=== PATIENT | male | born 1960 | race Caucasian/White ===

== ENCOUNTER 2019-06-16 10:25 | Inpatient (IN) | payer OTHER ==
[~2019-06-16] VITALS: Ht 182.9 cm; Wt 88.9 kg
--- NOTE | 2019-06-16 10:35 | NUR ---
PATIENT VIOLET RA 88 FROM HOME. REPORTED INCREASING ABD PAIN FOR 3-4 DAYS. PER RA REPORT, FSBS TAKEN WITH RESULT OF 56. REPORTED GIVEN PATIENT WITH D10 PRIOR TO ADMISSION. CONNECTED TO MONITOR.
--- NOTE | 2019-06-16 10:38 | NUR ---
FSBS 179. DR ALEX AWARE
[2019-06-16 10:45] LABS: BASOPHILS % (AUTO) 0.1 % (0.0-2.0); HEMATOCRIT 43 % (39-51); HEMOGLOBIN 14.5 g/dL (13.5-17.5); LYMPHOCYTES # (AUTO) 0.4 /CMM (0.8-4.8); LYMPHOCYTES % (AUTO) 2.5 % (20.0-44.0); MEAN CORPUSCULAR HGB CONC 34 g/dl (31.0-36.0); MEAN CORPUSCULAR VOLUME 95 fL (80-96); MONOCYTES # (AUTO) 1.2 /CMM (0.1-1.30); MONOCYTES % (AUTO) 7.7 % (2.0-12.0); NEUTROPHILS # (AUTO) 13.6 /CMM (1.8-8.9); NEUTROPHILS % (AUTO) 89.7 % (43.0-81.0); PLATELET COUNT (AUTO) 264 /CMM (150-450); RED BLOOD CELL COUNT(AUTO) 4.48 MIL/uL (4.5-6.0); WHITE BLOOD COUNT (AUTO) 15.2 K/uL (4.3-11.0)
--- NOTE | 2019-06-16 10:49 | NUR ---
IV LINE ESTABLISHED. BLOOD DRAWN AND SENT TO LAB
[2019-06-16 11:00] LABS: ALANINE AMINOTRANSFERASE 134 U/L (12-78); ALKALINE PHOSPHATASE 229 U/L (46-116); ASPARTATE AMINOTRANSFERASE 192 U/L (15-37); BILIRUBIN,DIRECT 4.3 mg/dL (0.0-0.2); BILIRUBIN,TOTAL 5.2 mg/dL (0.2-1.0); CARBON DIOXIDE 18 mmol/L (21-32); CHLORIDE 88 mmol/L (98-107); CREATININE 3.5 mg/dL (0.6-1.3); GLUCOSE 125 mg/dL (74-106); LIPASE 237 U/L (73-393); SODIUM SERUM 121 mmol/L (136-145); TOTAL PROTEIN, SERUM 5.9 g/dL (6.4-8.2)
[2019-06-16] MEDS ORDERED: IV NS 0.9% 1,000 ML BAG IV ONE (11:00)
[2019-06-16 11:02] LABS: CALCIUM, SERUM 13.6 mg/dL (8.5-10.1)
[2019-06-16 11:03] LABS: UREA NITROGEN, BLOOD 106 mg/dL (7-18)
[2019-06-16 11:24] LABS: SERUM AMMONIA 32 umol/L (11-32)
--- NOTE | 2019-06-16 11:54 | NUR ---
TALKED WITH [facility]. THEY WANT CLINICALS AND FACE SHEET FAXED.
[2019-06-16] MEDS ORDERED: IV NS 0.9% 1,000 ML IV ONE (12:00)
[2019-06-16] MEDS ORDERED: OXYC15TA2 PO (13:02)
--- NOTE | 2019-06-16 13:02 | NUR ---
CALLED [facility] FOR FOLLOW UP OF STATUS OF TRANSFER.
--- NOTE | 2019-06-16 13:54 | NUR ---
PAGED [facility] [employer].
[2019-06-16] MEDS ORDERED: MORPHINE SULFATE INJ 2 MG/ML DISP.SYRIN IV ONE (14:00)
[2019-06-16] MEDS ORDERED: MORPHINE SULFATE INJ 2 MG/ML DISP.SYRIN ONE (14:01)
--- NOTE | 2019-06-16 14:07 | NUR ---
CALLED NURSING SUP FOR TELE BED.
--- NOTE | 2019-06-16 14:41 | NUR ---
NURSING SUP CALLED GAVE TELE BED [phone]. MUKESH IS THE NURSE.
--- NOTE | 2019-06-16 15:16 | NUR ---
SPOKE WITH MUKESH AGUILERA AND GAVE REPORT
[2019-06-16 16:00] VITALS: BP 134/80
--- NOTE | 2019-06-16 16:00 | NUR ---
LOAN PROCESSING SUPERVISORSHALE MINER NOTE PT ARRIVED TO TELE UNIT IN STABLE CONDITION ACCOMPANIED BY 2 ER STAFF. PT IS A/O X4, AFEBRILE. RESPIRATIONS ARE EVEN AND UNLABORED, NOT IN ANY ACUTE DISTRESS NOTED. TELE LEADS PLACED AND IS SR. PUPILS ARE REACTIVE TO LIGHT, NOTED WITH JAUNDICE SCLERA. ABDOMEN IS SOFT AND NONDISTENDED, BOWEL SOUNDS ARE PRESENT IN ALL 4 QUADRANTS UPON AUSCULTATION. DENIES ANY BLADDER DISCOMFORT. SKIN IS INTACT, NO SKIN ISSUES NOTED. PT DOES C/O PAIN 10/10 TO ABDOMEN AND LOWER BACK. WILL MEDICATE ACCORDINGLY. IV ACCESS TO RFA G18 AND LAC G20 INTACT, NO INFILTRATION NOTED. DRESSING KEPT CLEAN AND DRY. DR. CARBALLO MADE AWARE OF ADMISSION W/ ORDERS NOTED AND CARRIED OUT. SAFETY MEASURES ARE IN PLACE. INSTRUCTED PT TO USE CALL LIGHT WHEN ASSISTANCE IS NEEDED, CALL LIGHT IS LEFT WITHIN REACH. WILL MONITOR THROUGHOUT SHIFT FOR CONTINUITY OF CARE.
--- NOTE | 2019-06-16 16:04 | NUR ---
PATIENT TRANSFERRED TO [facility] VIA ACLS PROTOCOL
[2019-06-16] MEDS ORDERED: ACETAMINOPHEN 325 MG TABLET PO PRN (17:30)
[2019-06-16] MEDS ORDERED: HYDROCODONE/APAP 5/325MG 1 EACH TABLET PO PRN (17:30)
[2019-06-16] MEDS ORDERED: Z GUARD REMEDY 2 OZ OINT TP PRN (17:30)
[2019-06-16] MEDS ORDERED: MAG HYDROX/AL HYDROX/SIMETH 30 ML UDC PO PRN (17:30)
[2019-06-16] MEDS ORDERED: MAGNESIUM HYDROXIDE 30 ML UDC PO PRN (17:30)
[2019-06-16] MEDS ORDERED: ZOLPIDEM TARTRATE 5 MG TABLET PO PRN (17:30)
[2019-06-16] MEDS ORDERED: ONDANSETRON HCL/PF 4 MG/2 ML VIAL IVP PRN (17:30)
[2019-06-16] MEDS: IV D5/0.45 NACL 1,000 ML IV PRN (18:18)
[2019-06-16] MEDS: MORPHINE SULFATE INJ 2 MG/ML DISP.SYRIN IV PRN ×2 (18:18→22:36)
--- NOTE | 2019-06-16 18:45 | NUR ---
LIGHT OUT EXAMINER CLOSING NOTES PT REMAINS A/O X4, AFEBRILE. APPEAR TO BE VERY TIRED. RESPIRATIONS ARE EVEN AND UNLABORED, NOT IN ANY ACUTE DISTRESS NOTED. MEDICATED PT WITH MORPHINE FOR PAIN, WILL NOTE EFFECTIVENESS. IV ACCESS TO RFA AND LAC, IV FLUIDS RUNNING AT 100ML/HR, TOLERATING WELL. SAFETY MEASURES ARE IN PLACE. GF AT BEDSIDE. WILL ENDORSE TO NEXT SHIFT FOR CONTINUITY OF CARE.
--- NOTE | 2019-06-16 19:15 | NUR ---
RN INITIAL NOTES: RECEIVED REPORT FROM MUKESH AGUILERA. PT IN BED, SLEEPING, APPEARS CALM AND COMFORTABLE, RESPIRATIONS EVEN AND UNLABORED. ON TELE MONITORING, SINUS RHYTHM HR 74. JUST RECEIVED PRN PAIN MEDS NOT TOO LONG AGO. MET WITH PT'S GF AT BED SIDE, PER GF THEY ARE STILL WAITING TO BE TRANSF[facility], PT'S ONCOLOGIST IS THERE AND PT IS WELL KNOWN TO AGUAS BUENAS. PT'S LAST CHEMO THERAPY WAS 5WEEKS AGO. NOTED PORT-A-CATH ON RIGHT UPPER CW, NOT ACCESS AT THIS TIME. NO S/S OF INFECTION, DRAINAGE OR BLEEDING ON PORT-A-CATH SITE. PT HAS 2 IV ACCESS, BOTH PATENT AND FLUSHING WELL, LEFT AC IV ON HL, AND RIGHT FA IV ACCESS INFUSING WITH D51/2 NS AT 100ML/HR. PT ON NPO, FOR XR VIDEO SWALLOW WITH SPEECH. PER REPORT FROM AUBRIE RN, THIS PROCEDURE WILL TAKE PLACE ON WEDNESDAY SPEECH THERAPIST IS AVAILABLE BY WEDNESDAY. WILL BE KEPT NPO DUE TO DYSPHAGIA AND EPISODE OF VOMITING. URINAL WITHIN REACH. SAFETY PRECAUTIONS FOR FALL INITIATED, CALL LIGHT IN REACH, WILL CONTINUE MONITORING PT.
--- NOTE | 2019-06-16 19:30 | NUR ---
RN NOTES: DR ROA AT BED SIDE, SPEAKING WITH PT'S FAMILY/GF, REGARDING PLAN OF CARE TONIGHT. PER DR ROA, WILL DO CT CHEST WO CONTRAST TOMORROW AM, AND WILL START ON IV ATB.
[2019-06-16 20:00] VITALS: BP 131/79
--- NOTE | 2019-06-16 20:30 | NUR ---
RN NOTES: SUCTION SET UP SECURED
[2019-06-16] MEDS ORDERED: PHYTONADIONE INJ 10 MG/1 ML AMPUL SQ ONE (21:00)
[2019-06-16] MEDS ORDERED: ENOXAPARIN SODIUM 30 MG/0.3 ML DISP.SYRIN SQ SCH (21:00)
[2019-06-16] MEDS ORDERED: CEFTRIAXONE 1 G in IV D5W 50 ML IV SCH (21:00)
--- NOTE | 2019-06-16 21:00 | NUR ---
RN NOTES: STILL PENDING FIBRINOGEN RESULT
--- NOTE | 2019-06-16 21:30 | NUR ---
RN NOTES: FIBRINOGEN RESULT STILL PENDING
--- NOTE | 2019-06-16 22:00 | NUR ---
rn notes: clarified with pharm oil exploration engineer regarding order for lovenox and vit k.
[2019-06-16 22:35] VITALS: BP 125/75
--- NOTE | 2019-06-16 22:36 | NUR ---
prn morphine: pt c/o 04/29 generalized pain requesting pain medication. prn morphine 2mg ivp administered to pt at this time, vs taken and recorded prior to administering medication. will continue to monitor and reassess pt.
--- NOTE | 2019-06-16 22:50 | NUR ---
rn notes: clarified with dr la regarding vit k order, awaiting call back
--- NOTE | 2019-06-16 23:10 | NUR ---
rn notes: supervisor agricultural education md currently in the unit, relayed result of procalcitonin 8.79, made aware pt on rocephin iv q24hrs, was given at 2228pm, no new orders per md. also asked regarding order for lovenox by am hospitalist and hem/onc order for vit k, relayed result of coags, pt inr and ptt, per md, to give vit k x1 dose as ordered, and dc lovenox order. order read back, verified, and carried out.
--- NOTE | 2019-06-16 23:18 | NUR ---
rn notes: vit k order x 1 dose. witnessed by mathieu rosas. vit k administered subcutaneously on abdomen/rlq area.
--- NOTE | 2019-06-17 00:06 | NUR ---
RN NOTES: SEEN PT SLEEPING AT THIS TIME, NO FACIAL GRIMACE NOTED, APPEARS CALM AND COMFORTABLE. WILL CONTINUE MONITORING PT.
--- NOTE | 2019-06-17 01:00 | NUR ---
rn notes: pt refuses to use urinal, insisted to go to the bathroom. pt needs assistance ambulating to bathroom, noted to be unsteady. voided freely in the toilet bowl, unable o use urinal, unable to collect urine for ua/ua culture. assisted back to bed, connected back to ivf as ordered.
[2019-06-17] MEDS: IV D5/0.45 NACL 1,000 ML IV PRN (03:21)
--- NOTE | 2019-06-17 03:21 | NUR ---
rn notes: pt sleeping at this time, respirations even and unlabored, appears calm and comfortable, will continue monitoring pt.
--- NOTE | 2019-06-17 04:10 | NUR ---
rn notes: collected urine for ua and c&s, contacted lab for fiber picker of specimen.
[2019-06-17 04:15] VITALS: BP 126/82
[2019-06-17] MEDS: MORPHINE SULFATE INJ 2 MG/ML DISP.SYRIN IV PRN (04:19)
--- NOTE | 2019-06-17 04:19 | NUR ---
prn morphine: pt c/o 04/29 abdominal pain requesting for pain medication. prn morphine 2mg ivp administered to pt at this time, will continue to monitor and reassess pt.
--- NOTE | 2019-06-17 06:46 | NUR ---
rn closing notes: pt in bed, remains a/o x3 on ra respirations even and unlabored. both iv access remains patent and flushing well, infusing with ivf as ordered. no episode of n/v noted throughout the shift. last pain meds administered 0420am. pt remains npo for xr video swallow with speech on tuesday 06/19, ct chest and ct head wo contrast today. [facility] paper works initially filled out with available information, for next shift rn to complete remaining necessary info, such as admitting/accepting md, latest vs, final diagnosis, name and address of hospital, room number, receiving rn name. exit care completed. vs remains stable, needs attended. safety precautions for fall remains engaged, call light in reach, will endorse to day rn for continuity of care.
--- NOTE | 2019-06-17 07:30 | NUR ---
RN OPENING NOTES RECEIVED PT LAYING IN BED, RESTING COMFORTABLY. PT IS EASILY AROUSABLE AND RESPONSIVE. RESPIRATIONS ARE EVEN AND UNLABORED, NOT IN ANY ACUTE DISTRESS NOTED. DENIES ANY PAIN AT THIS TIME, SOB, N/V. IV SITE TO RFA G18 AND LAC G20 INTACT, NO INFILTRATION NOTED. DRESSING KEPT CLEAN AND DRY. SAFETY MEASURES ARE IN PLACE. INSTRUCTED PT TO USE CALL LIGHT WHEN ASSISTANCE IS NEEDED, CALL LIGHT IS LEFT WITHIN REACH. WILL MONITOR THROUGHOUT SHIFT FOR CONTINUITY OF CARE.
[2019-06-17 07:41] LABS: BASOPHILS % (AUTO) 0.2 % (0.0-2.0); EOSINOPHILS % (AUTO) 0.2 % (0.0-6.0); HEMATOCRIT 43 % (39-51); HEMOGLOBIN 14.4 g/dL (13.5-17.5); LYMPHOCYTES # (AUTO) 0.2 /CMM (0.8-4.8); LYMPHOCYTES % (AUTO) 1.5 % (20.0-44.0); MEAN CORPUSCULAR HGB CONC 34 g/dl (31.0-36.0); MEAN CORPUSCULAR VOLUME 96 fL (80-96); MONOCYTES # (AUTO) 1.1 /CMM (0.1-1.30); MONOCYTES % (AUTO) 7.6 % (2.0-12.0); NEUTROPHILS # (AUTO) 13.2 /CMM (1.8-8.9); NEUTROPHILS % (AUTO) 90.5 % (43.0-81.0); PLATELET COUNT (AUTO) 203 /CMM (150-450); RED BLOOD CELL COUNT(AUTO) 4.44 MIL/uL (4.5-6.0); WHITE BLOOD COUNT (AUTO) 14.6 K/uL (4.3-11.0)
[2019-06-17 08:00] VITALS: BP 113/73
[2019-06-17 08:09] LABS: CREATININE 2.8 mg/dL (0.6-1.3); MAGNESIUM 2.7 mg/dL (1.8-2.4); PHOSPHORUS 5.2 mg/dL (2.5-4.9); POTASSIUM 4.6 mmol/L (3.5-5.1)
[2019-06-17 08:14] LABS: CALCIUM, SERUM 13.4 mg/dL (8.5-10.1)
[2019-06-17 08:51] LABS: APPEARANCE,URINE Cloudy (CLEAR); BILIRUBIN,URINE Negative (NEGATIVE); BLOOD, URINE Trace-intact Ery/uL (NEGATIVE); COLOR,URINE Yellow (YELLOW); KETONES,URINE Negative (NEGATIVE); LEUKOCYTE ESTERASE ,URINE Negative (NEGATIVE); NITRITE, URINE Negative (NEGATIVE); PROTEIN,URINE Negative (NEGATIVE); UGLUCOSE Negative (NEGATIVE); UROBILINOGEN,URINE 0.2 EU/dL (0.2)
[2019-06-17] MEDS ORDERED: PANTOPRAZOLE 40 MG VIAL IV SCH (09:00)
[2019-06-17] MEDS ORDERED: Sodium Chloride 154 MEQ in IV 10% DEXTROSE 1,000 ML IV PRN (09:00)
[2019-06-17] MEDS ORDERED: AZITHROMYCIN 500 MG in IV D5W 250 ML IV SCH (09:00)
[2019-06-17 09:14] LABS: BACTERIA,URINE Few /HPF (None Seen); RBC,URINE 0-2 /HPF (0-2); SQUAMOUS EPITHELIAL CELL,UR Rare /HPF (None Seen); WBC,URINE NONE SEEN /HPF (0-3)
[2019-06-17 09:15] LABS: URINE AMORPHOUS URATE Many /HPF (None Seen)
[2019-06-17] MEDS: BLOOD SUGAR DIAGNOSTIC 1 EACH STRIP IN SCH ×2 (12:28→18:00)
--- NOTE | 2019-06-17 12:30 | NUR ---
MS RN NOTES-- PT WAS SEEN AND EXAMINED BY DR. ESQUEDA.
--- NOTE | 2019-06-17 13:44 | NUR ---
MS RN NOTES-- PT REFUSES JOHNSON INSERTION AT THIS TIME. EXPLAINED THE RISKS AND BENEFITS X3, PT STILL NOTED WITH REFUSAL. WILL HONOR PT'S RIGHT TO REFUSE. WILL CONTINUE TO MONITOR.
[2019-06-17 16:00] VITALS: BP 100/59
--- NOTE | 2019-06-17 18:05 | NUR ---
MS R NOTES-- PT REFUSED ACCUCHECK. SHOWS NO S/SX OF HYPO/HYPERGLYCEMIA NOTED. WILL CONTINUE TO MONITOR CLOSELY.
--- NOTE | 2019-06-17 19:00 | NUR ---
MS TIMEKEEPER SUPERVISOR/AMA NOTE PT AND DECIDED TO GO AMA. EXPLAINED THE RISKS AND CONSEQUENCES OF GOING AMA, BOTH PT AND AGREED WITH VERBALIZED AND WRITTEN UNDERSTANDING. ALSO EXPLAINED DISCHARGE PAPERWORK W/ VERBAL AND WRITTEN UNDERSTANDING WELL. PT IS A/O X3, AFEBRILE. RESPIRATIONS ARE EVEN AND UNLABORED, NOT IN ANY ACUTE DISTRESS NOTED. PT DENIES ANY PAIN AT THIS TIME, NO C/O SOB, N/V. ABDOMEN IS SOFT AND NONDISTENDED, BOWEL SOUNDS ARE PRESENT IN ALL 4 QUADRANTS UPON AUSCULTATION. DENIES ANY BLADDER DISCOMFORT. NO SKIN ISSUES NOTED. SKIN IS INTACT, KEPT CLEAN AND DRY. ALL BELONGINGS SENT WITH PT. ACCOMPANIED PT TO PERSONAL VEHICLE WITH 2 STAFF ASSIST VIA WHEELCHAIR. PT LEFT IN STABLE CONDITION. Addendum: 06/17/19 at 1929 by ANNE-MARIE HOLLIS RN MS RN NOTES-- DR. CARBALLO MADE AWARE OF AMA.
--- NOTE | 2019-06-17 19:20 | NUR ---
MS RN RECEIVE PT IN BED AWAKE WATCHING TV A/O X 3 STABLE, RESPIRATION EVEN AND UNLABORED, NO S/S OF DISTRESS. SAFETY MEASURES IN PLACE. WILL CONT TO MTR Addendum: 06/17/19 at 1929 by CODY SINGH RN MISTAKEN ENTRY DISREGARD THIS DOCUMENTATION WRONG PATIENT.
[2019-06-18 13:19] LABS: CREATININE, URINE 60.7 MG/DL (30.0-125.0)
== END 2019-06-17 19:00 | disposition left against medical advice (07) | DRG 682 ==
LOC: ER 10:29 → MED 15:35
PROVIDERS: ADMIT Student in an Organized Health Care Education/Training Program; ATTEND Student in an Organized Health Care Education/Training Program
DX: N17.0 Acute kidney failure with tubular necrosis (principal); G93.41 Metabolic encephalopathy; E43 Unspecified severe protein-calorie malnutrition; J15.9 Unspecified bacterial pneumonia; C78.7 Secondary malignant neoplasm of liver and intrahepatic bile duct; C15.9 Malignant neoplasm of esophagus, unspecified; E87.1 Hypo-osmolality and hyponatremia; D68.9 Coagulation defect, unspecified; Q85.9 Phakomatosis, unspecified; Z86.73 Personal history of transient ischemic attack (TIA), and cerebral infarction without residual deficits; Z92.21 Personal history of antineoplastic chemotherapy; R13.10 Dysphagia, unspecified; E86.0 Dehydration; D72.829 Elevated white blood cell count, unspecified; E83.52 Hypercalcemia; E88.09 Other disorders of plasma-protein metabolism, not elsewhere classified; Z68.26 Body mass index [BMI] 26.0-26.9, adult; R74.0 Nonspecific elevation of levels of transaminase and lactic acid dehydrogenase [LDH]; R91.8 Other nonspecific abnormal finding of lung field; J84.10 Pulmonary fibrosis, unspecified; E27.8 Other specified disorders of adrenal gland; E16.2 Hypoglycemia, unspecified
CPT/HCPCS: 36415; 70450-TC; 71045-TC; 71250-TC; 80048-TC; 80076-TC; 81000-TC; 82140-TC; 82570-TC; 82962-TC; 83690-TC; 83735-TC; 83935-TC; 84100-TC; 84300-TC; 84484-TC; 85025-TC; 85385-TC; 85730-TC; 87040-TC; 87081-TC; 87086-TC; C9113; G0378; J0456; J0696; J2270; J3430; J3490; J7030; J7060

== ENCOUNTER 2019-06-20 12:11 | Inpatient (IN) | payer OTHER ==
[~2019-06-20] VITALS: Ht 182.9 cm; Wt 86.2 kg
[~2019-06-20 12:11] MED LIST: OXYC15TA2 PO
--- NOTE | 2019-06-20 12:15 | NUR ---
"[id number], FROM HOME, AMS BS 55 D10 GIVEN BY EMS ON SCENE, Hx RENAL CA" pt aaox0, pt verbally responsive, pt on monitor, vss, nad noted, pending md mendez
--- NOTE | 2019-06-20 12:18 | NUR ---
CALLED JAMMIE TO HAVE HER EVALUATE PT FOR HOSPICE.
[2019-06-20] MEDS ORDERED: IV NS 0.9% 1,000 ML BAG IV ONE (12:30)
[2019-06-20 12:49] LABS: BASOPHILS # (AUTO) 0.1 /CMM (0.0-0.2); BASOPHILS % (AUTO) 0.7 % (0.0-2.0); HEMATOCRIT 43 % (39-51); HEMOGLOBIN 14.5 g/dL (13.5-17.5); LYMPHOCYTES # (AUTO) 0.1 /CMM (0.8-4.8); LYMPHOCYTES % (AUTO) 0.9 % (20.0-44.0); MEAN CORPUSCULAR HGB CONC 34 g/dl (31.0-36.0); MEAN CORPUSCULAR VOLUME 96 fL (80-96); MONOCYTES # (AUTO) 1.6 /CMM (0.1-1.30); NEUTROPHILS # (AUTO) 14.3 /CMM (1.8-8.9); NEUTROPHILS % (AUTO) 88.4 % (43.0-81.0); PLATELET COUNT (AUTO) 165 /CMM (150-450); RED BLOOD CELL COUNT(AUTO) 4.52 MIL/uL (4.5-6.0); WHITE BLOOD COUNT (AUTO) 16.1 K/uL (4.3-11.0)
[2019-06-20 13:09] LABS: ALBUMIN 1.5 g/dL (3.4-5.0); BILIRUBIN,DIRECT 10.5 mg/dL (0.0-0.2); BILIRUBIN,TOTAL 11.8 mg/dL (0.2-1.0); CREATININE 3.4 mg/dL (0.6-1.3); POTASSIUM 5.6 mmol/L (3.5-5.1); TOTAL PROTEIN, SERUM 5.4 g/dL (6.4-8.2)
[2019-06-20 13:12] LABS: APPEARANCE,URINE Clear (CLEAR); BILIRUBIN,URINE MODERATE (NEGATIVE); BLOOD, URINE Trace-intact Ery/uL (NEGATIVE); COLOR,URINE Yellow (YELLOW); KETONES,URINE Negative (NEGATIVE); LEUKOCYTE ESTERASE ,URINE Negative (NEGATIVE); NITRITE, URINE Negative (NEGATIVE); PROTEIN,URINE Negative (NEGATIVE); UGLUCOSE Negative (NEGATIVE); UROBILINOGEN,URINE 0.2 EU/dL (0.2)
--- NOTE | 2019-06-20 13:13 | NUR ---
CALLED [facility]. CYLINDER TESTER WAS PAGED.
--- NOTE | 2019-06-20 13:21 | NUR ---
CALLED HOUSE SUP FOR MS BED
[2019-06-20 13:34] LABS: BACTERIA,URINE Few /HPF (None Seen); SQUAMOUS EPITHELIAL CELL,UR Rare /HPF (None Seen); WBC,URINE 0-2 /HPF (0-3)
[2019-06-20 13:38] LABS: CALCIUM, SERUM 13.9 mg/dL (8.5-10.1)
--- NOTE | 2019-06-20 13:58 | NUR ---
[id number] ALE JUAREZ RN
--- NOTE | 2019-06-20 14:24 | NUR ---
MS WAFER PRODUCTION LEAD WORKER NOTES Received Patient resting in bed. A/O x 1. VS stable with no acute distress. Breathing even and unlabored on room air with no respiratory distress and SPO2 94%. Denies pain. 18g PIV on RAC clean, dry, intact and flushing well. Safety precautions in place. Bed locked and set to lowest position with side rails x 2 up. All needs rendered at this time. Call light within reach. Girlfriend at bedside. Will continue to monitor.
--- NOTE | 2019-06-20 14:46 | NUR ---
REPORT GIVEN TO DI AGUILERA FOR LIVIA; PT WILL BE TRANSPORTED TO 3RD FLOOR MS-- ADV DIRECTIVE IS WITH , NO HARD COPY AT THIS TIME.
[2019-06-20 16:00] VITALS: BP 102/68
[2019-06-20] MEDS ORDERED: ACETAMINOPHEN 650 MG/SUPP.RECT RC PRN (17:30)
[2019-06-20] MEDS ORDERED: IV D5/ 0.9% NACL 1,000 ML IV PRN (17:30)
[2019-06-20] MEDS ORDERED: Z GUARD REMEDY 2 OZ OINT TP PRN (17:30)
[2019-06-20] MEDS ORDERED: DEXTROSE 50%-WATER 50 ML DISP.SYRIN IV PRN (17:30)
[2019-06-20] MEDS ORDERED: ONDANSETRON HCL/PF 4 MG/2 ML VIAL IVP PRN (17:30)
[2019-06-20] MEDS: BLOOD SUGAR DIAGNOSTIC 1 EACH STRIP IN SCH ×2 (17:30→22:47)
--- NOTE | 2019-06-20 18:59 | NUR ---
MS RN CLOSING NOTES Patient resting in bed. A/O x 1. VS stable with no acute distress. Breathing even and unlabored on room air with no respiratory distress. Denies pain. 18g PIV on RAC clean, dry, intact and flushing well with D5NS running at 100ml/hr. Skin assessment pictures taken and placed in chart. Safety precautions in place. Bed locked and set to lowest position with side rails x 2 up. All needs rendered at this time. Call light within reach. Girlfriend at bedside. Will endorse plan of care to oncoming shift.
--- NOTE | 2019-06-20 19:30 | NUR ---
RN OPEN NOTES RECEIVED PATIENT RESTING IN BED WITH FAMILY AT BEDSIDE. A/OX1. NO SIGNS OF DISTRESS OR DISCOMFORT. BREATHING EVEN AND UNLABORED. IV ACCESS IN RAC WITH D5NS INFUSING, PATENT AND INTACT, NO SIGNS OF REDNESS OR INFILTRATION. BED IN LOW LOCKED POSITION WITH SIDE RAILS X3. BED ALARM ON. CALL LIGHT WITHIN REACH. WILL CONTINUE TO MONITOR.
[2019-06-20 20:01] VITALS: BP_SYST 113; BP_SYST 126; BP_DIAS 70; BP_DIAS 85
[2019-06-21] MEDS: BLOOD SUGAR DIAGNOSTIC 1 EACH STRIP IN SCH ×4 (07:02→22:13)
--- NOTE | 2019-06-21 07:16 | NUR ---
RN CLOSING NOTES PATIENT RESTING COMFORTABLY IN BED. A/OX1. NO SIGNS OF DISTRESS OR DISCOMFORT. BREATHING EVEN AND UNLABORED. IV ACCESS IN RAC WITH D5NS INFUSING, PATENT AND INTACT, NO SIGNS OF REDNESS OR INFILTRATION. ALL NEEDS MET. NO SIGNIFICANT CHANGES THROUGH THE NIGHT. BED IN LOW LOCKED POSITION WITH SIDE RAILS X3. BED ALARM ON. CALL LIGHT WITHIN REACH. ENDORSED TO AM SHIFT FOR LIVIA.
--- NOTE | 2019-06-21 07:45 | NUR ---
RN MS OPENING NOTES Received patient on room air, no sob noted, patient shows no s/s of pain at this time. Patient remains on NPO and is a/o x1 at this time. RAC #18 with D5NS@100 mL per hour. Bed at the lowest setting, call light within reach, side rails up x2.
[2019-06-21 08:00] VITALS: BP 124/78
[2019-06-21 16:00] VITALS: BP 118/65
[2019-06-21] MEDS: MORPHINE SULFATE INJ 2 MG/ML DISP.SYRIN IV PRN ×2 (16:43→22:14)
[2019-06-21] MEDS: IV D5/ 0.9% NACL 1,000 ML IV PRN (18:23)
--- NOTE | 2019-06-21 18:46 | NUR ---
RN MS CLOSING NOTES Patient remains on room air, no sob noted, patient a/o x1 and shows no s/s of pain at this time. Bed ridden and NPO. Glucose levels WNL the whole shift. Patient with SILAS midline 100 mL D5 NS. Bed at the lowest setting, call light within reach, side rails up x2. Will give report to NOC RN for LIVIA bedside.
[2019-06-21 19:01] LABS: BASOPHILS # (AUTO) 0.1 /CMM (0.0-0.2); BASOPHILS % (AUTO) 0.3 % (0.0-2.0); HEMATOCRIT 41 % (39-51); LYMPHOCYTES # (AUTO) 0.2 /CMM (0.8-4.8); LYMPHOCYTES % (AUTO) 1.3 % (20.0-44.0); MEAN CORPUSCULAR HGB CONC 34 g/dl (31.0-36.0); MEAN CORPUSCULAR VOLUME 95 fL (80-96); MONOCYTES # (AUTO) 1.3 /CMM (0.1-1.30); MONOCYTES % (AUTO) 8.1 % (2.0-12.0); NEUTROPHILS # (AUTO) 14.4 /CMM (1.8-8.9); NEUTROPHILS % (AUTO) 90.3 % (43.0-81.0); PLATELET COUNT (AUTO) 161 /CMM (150-450); RED BLOOD CELL COUNT(AUTO) 4.32 MIL/uL (4.5-6.0)
--- NOTE | 2019-06-21 19:05 | NUR ---
RN MS OPENING NOTES RECEIVED PATIENT IN BED AWAKE ALERT AND ORIENTED X1 , RESPIRATIONS EVEN AND UNLABORED WITH EQUAL RISE AND FALL OF CHEST, APPEARS TO BE COMFORTABLE AT THIS TIME, NPO STATUS, IV SITE TO RIGHT FA INTACT AND PATENT, AND RIGHT UPPER ARM MIDLINE IVF RUNNING ORDERED, SITTER AT BEDSIDE FOR SAFETY PRECAUTIONS, PERINEAL CARE PROVIDED REMAINS CLEAN AT THIS TIME, ALL NEEDS ATTENDED AT THIS TIME WILL CONTINUE TO MONITOR AND ADDRESS NEEDS.
[2019-06-21 19:30] LABS: BAND % (MANUAL) 10 % (0.0-5.0); BILIRUBIN,TOTAL 11.2 mg/dL (0.2-1.0); LYMPHOCYTES % (MANUAL) 3 % (16-48); MAGNESIUM 2.6 mg/dL (1.8-2.4); MONOCYTES % (MANUAL) 12 % (0-11.0); NEUTROPHILS % (MANUAL) 75 (42-76); PHOSPHORUS 5.7 mg/dL (2.5-4.9); TOTAL PROTEIN, SERUM 4.9 g/dL (6.4-8.2)
[2019-06-21 19:45] LABS: ALBUMIN 1.3 g/dL (3.4-5.0); CALCIUM, SERUM 13.6 mg/dL (8.5-10.1)
[2019-06-21 20:00] VITALS: BP 124/74
--- NOTE | 2019-06-21 21:00 | NUR ---
RN MS NOTES MADE HOSPITALIST MORIAH AWARE OF CRITICAL LABS RESULTED AND PREVIOUS TREND NO NEW ORDERS AT THIS TIME.
[2019-06-21] MEDS: INSULIN REGULAR, HUMAN 100 UNIT/ML 3 ML VIAL SQ PRN (22:13)
--- NOTE | 2019-06-21 22:14 | NUR ---
RN MS NOTES NOTED PATIENT UPON ASSESSMENT WITH MOANING AND FACIAL GRIMACING, VS WNL PRN MORPHINE GIVEN ORDERED FOR PAIN WILL CONTINUE TO MONITOR FOR EFFECTIVENESS.
[2019-06-22] MEDS: IV D5/ 0.9% NACL 1,000 ML IV PRN ×3 (04:26→23:38)
[2019-06-22] MEDS: INSULIN REGULAR, HUMAN 100 UNIT/ML 3 ML VIAL SQ PRN (06:20)
[2019-06-22] MEDS: BLOOD SUGAR DIAGNOSTIC 1 EACH STRIP IN SCH ×4 (06:20→22:59)
--- NOTE | 2019-06-22 06:44 | NUR ---
RN MS CLOSING NOTES PATIENT IN BED AWAKE ALERT AND ORIENTED X1 , RESPIRATIONS EVEN AND UNLABORED WITH EQUAL RISE AND FALL OF CHEST, APPEARS TO BE COMFORTABLE AT THIS TIME, NPO STATUS, IV SITE TO RIGHT FA INTACT AND PATENT, AND RIGHT UPPER ARM MIDLINE IVF RUNNING ORDERED, SITTER AT BEDSIDE FOR SAFETY PRECAUTIONS, PERINEAL CARE PROVIDED THROUGHOUT SHIFT , SKIN REMAINS INTACT. REMAINS CLEAN AT THIS TIME, ALL NEEDS ATTENDED AT THIS TIME WILL CONTINUE TO MONITOR AND ENDORSE TO NEXT SHIFT.
--- NOTE | 2019-06-22 07:45 | NUR ---
M/S RN NOTES PATIENT AWAKE IN BED, ALERT AND ORIENTED X1 , NO RESPIRATORY DISTRESS, NO S/S OF PAIN AT THIS TIME. PATIENT ON NPO STATUS, IV OF D5 NS INFUSING AT 100ML/HR ON THE SILAS MIDLINE, INTACT AND PATENT. PATIENT HAS A SITTER AT BEDSIDE. SKIN WARM TO TOUCH. PATIENT'S NEEDS ATTENDED. BED ON LOWEST LOCKED POSITION, CALL LIGHT WITHIN REACH. WILL CONTINUE TO MONITOR.
[2019-06-22] MEDS: MORPHINE SULFATE INJ 2 MG/ML DISP.SYRIN IV PRN ×3 (08:44→18:13)
--- NOTE | 2019-06-22 18:50 | NUR ---
M/S RN NOTES PATIENT RESTING, LYING IN BED. NO RESPIRATORY DISTRESS, NO S/S OF PAIN AT THIS TIME. PATIENT'S NEEDS ATTENDED. GIRLFRIEND AT BEDSIDE. SKIN WARM TO TOUCH. IV OF D5 NS INFUSING AT 100ML/HR ON SILAS MIDLINE, INTACT AND PATENT. BED ON LOWEST LOCKED POSITION, CALL LIGHT WITHIN REACH. WILL ENDORSE TO ONCOMING NURSE.
--- NOTE | 2019-06-22 19:15 | NUR ---
MS RN NOTES RECEIVED PT IN BED RESTING. PT A/O X1. RESPIRATIONS EVEN AND UNLABORED WITH NO S/S OF ACUTE DISTRESS OR SOB NOTED. NO S/S OF PAIN AT THIS TIME. PATIENT ON CLEAR LIQUIDS. PT WITH SILAS MIDLINE INFUSING D5 NS AT 100ML/HR. PT WITH SITTER AT BEDSIDE. SAFETY MEASURES IN PLACE WITH BED IN LOWEST LOCKED POSITION WITH SIDE RAILS UP X2. CALL LIGHT WITHIN REACH. WILL CONTINUE TO MONITOR.
[2019-06-22 20:00] VITALS: BP 107/70
--- NOTE | 2019-06-23 06:00 | NUR ---
MS RN NOTES PAIN MEDS OFFERED THROUGHOUT SHIFT. PT STATED THAT HE HAD NO PAIN AT THE TIME EACH TIME IT WAS OFFERED.
[2019-06-23] MEDS: BLOOD SUGAR DIAGNOSTIC 1 EACH STRIP IN SCH (06:31)
--- NOTE | 2019-06-23 06:40 | NUR ---
MS RN NOTES PT IN BED RESTING BUT EASILY AWOKEN. PT A/O X1. RESPIRATIONS EVEN AND UNLABORED WITH NO S/S OF ACUTE DISTRESS OR SOB NOTED THROUGHOUT SHIFT. NO S/S OF PAIN AT THIS TIME. PATIENT ON CLEAR LIQUIDS. PT WITH SILAS MIDLINE INFUSING D5 NS AT 100ML/HR. PT WITH SITTER AT BEDSIDE. SAFETY MEASURES IN PLACE WITH BED IN LOWEST LOCKED POSITION WITH SIDE RAILS UP X2. PT KEPT CLEAN, DRY, AND COMFORTABLE. CALL LIGHT WITHIN REACH. WILL ENDORSE TO ONCOMING NURSE FOR LIVIA.
[2019-06-23 08:00] VITALS: BP 104/68
--- NOTE | 2019-06-23 08:00 | NUR ---
m/s building tech: initial assessment received pt in bed awake, alert to self only. pt keeps tossing and turning, kept comfortable and repositioned. reality orientation provided prn. sitter at bedside. will continue to monitor.
--- NOTE | 2019-06-23 08:30 | NUR ---
m/s marine electronics technician: notes mattie (girlfriend, dpoa) here visiting and plan to meet with case management to discuss home health vs. hospice care. will continue to monitor.
--- NOTE | 2019-06-23 09:00 | NUR ---
m/s sporting goods salesperson: notes mattie (dpoa) already met hospice nurse yesterday and to meet with her again in the afternoon as stated, but wants to meet with case management first after their meeting today.
[2019-06-23] MEDS: IV D5/ 0.9% NACL 1,000 ML IV PRN (09:28)
[2019-06-23] MEDS: MORPHINE SULFATE INJ 2 MG/ML DISP.SYRIN IV PRN ×3 (09:33→21:48)
--- NOTE | 2019-06-23 09:33 | NUR ---
m/s claim inspector: notes pt restless in bed, keep tossing and turning. noted with facial grimacing. morphine 2mg ivp by rn. girlfriend remains at bedside. will continue to monitor.
--- NOTE | 2019-06-23 10:03 | NUR ---
m/s breaster: lester phelps (dpoa) remains at bedside. pt resting comfortable in bed. will continue to monitor.
--- NOTE | 2019-06-23 10:30 | NUR ---
m/s tank house operator: notes mattie (dpoa, girlfriend) went down to case management office at this time. sitter remains at bedside.
--- NOTE | 2019-06-23 11:10 | NUR ---
m/s button maker and installer: md visit seen and examined by beti mccullough (acnp) with order for comfort measures only. beti spoke to mattie (responsible alliance party) at bedside.
--- NOTE | 2019-06-23 11:11 | NUR ---
WOUND CARE CONSULT: NO SKIN ASSESSMENT AT THIS TIME PER PATHOLOGY ASSISTANT AND N.P.
--- NOTE | 2019-06-23 11:38 | NUR ---
m/s wet trimmer: notes pt on comfort measures only, order clarify with beti (acnp) re: accu check with sliding scale with order to d'c and keep pt on iv fluids as ordered. orders read back and carried out.
--- NOTE | 2019-06-23 14:48 | NUR ---
m/s dental prosthetist: notes pt appears to be in discomfort, medicated with morphine 2mg ivp by rn. girlfriend remains at bedside. will continue to monitor.
--- NOTE | 2019-06-23 14:53 | NUR ---
m/s agricultural economist: notes lidia from [facility] called and informed me that they will arrange for ambulance and will have vandana talk to mattie (dpoa, girlfriend).
--- NOTE | 2019-06-23 15:00 | NUR ---
m/s matte cutter: notes discharge order received from beti (ancp). order acknowledged. just awaiting for authorization from hospice. mattie (girlfriend) aware and remains at bedside. will continue to monitor.
--- NOTE | 2019-06-23 15:18 | NUR ---
m/s military cook: notes appears comfortable at this time. sitter remains at bedside. will monitor.
--- NOTE | 2019-06-23 16:55 | NUR ---
m/s hospice care sales consultant: notes hospice nurse spoke to mattie (dpoa) and all arrangement done by hospice. pt for pick up driver at 2100. mattie left at this time and will be back later tonight. cn made aware.
--- NOTE | 2019-06-23 18:05 | NUR ---
m/s chemical treatment operator: notes milan ([facility] nurse) evaluation completed and hand me all the papers to give to family/ambulance and wants us to give morphine prior to discharge so he will be pain free and then remove all iv's. will endorsed to oncoming nurse. pt resting comfortable with sitter at bedside. needs attended. will continue to monitor.
--- NOTE | 2019-06-23 19:10 | NUR ---
m/s reordering clerk: notes report given to eleuterio (rn) for continuity of care. endorse to him to give morphine prior to d'c per hospice and then remove all iv lines. for picker packer at 2100 that was arrange by [facility].
--- NOTE | 2019-06-23 19:11 | NUR ---
RN PM OPENING NOTE BEDSIDE REPORT RECIEVED FROM NIELS ENRIQUEZ. PATIENT SEEN IN BED ALERT TO TOUCH ORIENTED TO SELF. BED DOWN LOCKED SRX4. PATIENT IN NO APPARENT DISTRESS. BREATHING IS EVEN AND UNLABORED. PATIENT HAS RAC#20 AND SILAS MIDLINE RUNNING D5NS AT 100 WITH NO S/S OF COMPLICATIONS. IVS TO BE REMOVED PRIOR TO DC. PATIENT BEING DISCHARGED ON HOSPICE WITH PICKUP TIME OF 2100. DISCHARGE PAPERWORK REVIEWED WITH NIELS AND IS READY TO BE PRESENTED TO FAMILY, PER NIELS IS TO RETURN PRIOR TO DC.
[2019-06-23 20:27] VITALS: BP 110/85
--- NOTE | 2019-06-23 20:30 | NUR ---
called mattie jett girlfriend. she is expecting patient to be transported to her residence. she will be nalbe to make it to the hospital to review and retrieve paper work. states no other family will be coming. reviewed discharge instructions and informed her that papers will be sent with patient when ambulance arrives.
--- NOTE | 2019-06-23 21:48 | NUR ---
[facility] ambulance is at the bedside unit 333. given report. patient to be trasported home on hospice. patient given morphine as requested by hospice company. manually entered as administered from battery failure from wow during administration. iv rac 320 removed with catheter intact. midline removed from right upper arm with cathetier line intact. patient in no apparent distress. girlfriend mattie called and informed of patients departure from hospital.
== END 2019-06-23 22:00 | disposition home or self-care (01) | DRG 435 ==
LOC: ER 12:12 → MED 14:11
PROVIDERS: ADMIT Hospitalist; ATTEND Hospitalist
PROC: 05H933Z Insertion of Infusion Device into Right Brachial Vein, Percutaneous Approach (ICD-10-PCS; principal; 2019-06-20)
DX: C78.7 Secondary malignant neoplasm of liver and intrahepatic bile duct (principal); N17.0 Acute kidney failure with tubular necrosis; E43 Unspecified severe protein-calorie malnutrition; G93.41 Metabolic encephalopathy; E87.1 Hypo-osmolality and hyponatremia; Q85.9 Phakomatosis, unspecified; E86.0 Dehydration; Z51.5 Encounter for palliative care; Z85.01 Personal history of malignant neoplasm of esophagus; I10 Essential (primary) hypertension; Z85.819 Personal history of malignant neoplasm of unspecified site of lip, oral cavity, and pharynx; E87.5 Hyperkalemia; D72.829 Elevated white blood cell count, unspecified; R13.10 Dysphagia, unspecified; J84.10 Pulmonary fibrosis, unspecified; E16.2 Hypoglycemia, unspecified; E83.52 Hypercalcemia; Z85.528 Personal history of other malignant neoplasm of kidney; Z66 Do not resuscitate; Z92.21 Personal history of antineoplastic chemotherapy; K72.90 Hepatic failure, unspecified without coma; E86.1 Hypovolemia
CPT/HCPCS: 36415; 36569; 71045-TC; 80048-TC; 80053-TC; 80076-TC; 81000-TC; 82140-TC; 82962-TC; 83735-TC; 84100-TC; 85025-TC; 87081-TC; 92526; 92611-TC; G0378; J1815; J2270; J7030; J7042